=== PATIENT | female | born 2000 | race Two or more races ===

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

== ENCOUNTER 2021-03-06 05:14 | Emergency (ER) | payer OTHER ==
[~2021-03-06] VITALS: Ht 167.6 cm; Wt 54.8 kg
[~2021-03-06 05:14] MED LIST: ALBU18HF INH
[2021-03-06] MEDS ORDERED: SODIUM CHLORIDE FLUSH 10ML SYR IVF ONE (08:30)
--- NOTE | 2021-03-06 08:36 | NUR ---
waiting for lab results and iv placement for ct exam
[2021-03-06 09:27] LABS: BASOPHILS % (AUTO) 1 % (0-1); EOSINOPHILS % (AUTO) 8 % (1-7); LYMPHOCYTES % (AUTO) 21 % (22-44); MEAN CORPUSCULAR HEMOGLOBIN 29.6 pg (27.0-34.8); MEAN PLATELET VOLUME 8.5 fL (7.4-10.4); MONOCYTES % (AUTO) 10 % (2-9); NEUTROPHILS % (AUTO) 60 % (42-75); PLATELET COUNT 217 x10^3/uL (130-400); RED BLOOD COUNT 5.54 x10^6/uL (3.82-5.3); RED CELL DISTRIBUTION WIDTH 13.6 % (9.6-15.2)
[2021-03-06 09:37] LABS: ALBUMIN 4.5 g/dL (3.4-5.0); ANION GAP 8 mmol/L (5-15); CALCIUM 8.7 mg/dL (8.5-10.1); CHLORIDE 106 mmol/L (98-107); CREATININE 0.66 mg/dL (0.55-1.02)
--- NOTE | 2021-03-06 10:00 | NUR ---
Pt ambulatory to room with steady gait. Mother present with her. UA sample obtained while awaiting MD exam.
--- NOTE | 2021-03-06 10:20 | NUR ---
IV started for CT as ordered. blending machine feeder completed.
--- NOTE | 2021-03-06 10:25 | NUR ---
emissions technician here to take pt via gurney to CT.
--- NOTE | 2021-03-06 10:35 | NUR ---
Pt back to room, no acute changes noted.
[2021-03-06] MEDS ORDERED: OMNIPAQUE 350 MG/ML, 75ML BOTTLE ONE (10:49)
--- NOTE | 2021-03-06 11:18 | NUR ---
MD at bedside to discuss findings on CT and labs and plan of care.
[2021-03-06 13:23] VITALS: BP 101/63
== END 2021-03-06 13:25 | disposition home or self-care (01) ==
LOC: ED 11:12
DX: L20.9 Atopic dermatitis, unspecified (principal); L01.01 Non-bullous impetigo; L03.211 Cellulitis of face; R22.0 Localized swelling, mass and lump, head; J45.909 Unspecified asthma, uncomplicated
CPT/HCPCS: 36415; 70487; 80048; 82040; 84703; 85025; 99285; Q9967